=== PATIENT | female | born 1950 | race Caucasian/White ===

== ENCOUNTER 2019-12-15 14:32 | Emergency (ER) | payer OTHER ==
[~2019-12-15] VITALS: Ht 167.6 cm; Wt 90.7 kg
[2019-12-15] MEDS ORDERED: PEPCID AC20 MG PO (14:40)
[2019-12-15] MEDS ORDERED: ADVAIR 250-501 EACH INH (14:40)
[2019-12-15] MEDS ORDERED: SYNTHROID88 MC1 PO (14:40)
[2019-12-15] MEDS ORDERED: ZYRTEC10 M5 PO (14:40)
[2019-12-15] MEDS ORDERED: KLOR-CON 1010 MEQ PO (14:40)
[2019-12-15] MEDS ORDERED: NORVASC5 MG PO (14:41)
[2019-12-15 17:45] VITALS: BP 147/66
== END 2019-12-15 17:45 | disposition short-term general hospital (02) ==
LOC: ER 14:32
DX: S02.32XA Fracture of orbital floor, left side, initial encounter for closed fracture (principal); S01.81XA Laceration without foreign body of other part of head, initial encounter; I10 Essential (primary) hypertension; E03.9 Hypothyroidism, unspecified; Z79.899 Other long term (current) drug therapy; Z88.2 Allergy status to sulfonamides; Z88.1 Allergy status to other antibiotic agents; Z88.8 Allergy status to other drugs, medicaments and biological substances; W14.XXXA Fall from tree, initial encounter; Y93.89 Activity, other specified; Y92.89 Other specified places as the place of occurrence of the external cause; Y99.8 Other external cause status